=== PATIENT | male | born 2005 | race Caucasian/White ===

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

== ENCOUNTER → 2025-01-09 09:18 | Outpatient (BNVA) | payer OTHER, SELFPAY | PROVIDERS: PCP Pediatrics; Visit Provider Physician Assistant | DX: S86.211A Strain of muscle(s) and tendon(s) of anterior muscle group at lower leg level, right leg, initial encounter (principal); X50.3XXA Overexertion from repetitive movements, initial encounter | CPT/HCPCS: 99203 ==

== ENCOUNTER → 2025-01-13 09:02 | Outpatient (BNVA) | payer OTHER, SELFPAY | PROVIDERS: PCP Pediatrics; Visit Provider Physician Assistant Medical | DX: S86.211D Strain of muscle(s) and tendon(s) of anterior muscle group at lower leg level, right leg, subsequent encounter (principal); S76.311D Strain of muscle, fascia and tendon of the posterior muscle group at thigh level, right thigh, subsequent encounter; X50.3XXD Overexertion from repetitive movements, subsequent encounter | CPT/HCPCS: 99213 ==

== ENCOUNTER → 2025-01-17 15:31 | Outpatient (BNVA) | payer OTHER, SELFPAY | PROVIDERS: PCP Pediatrics; Visit Provider Physician Assistant Medical | DX: S86.211D Strain of muscle(s) and tendon(s) of anterior muscle group at lower leg level, right leg, subsequent encounter (principal); X50.3XXD Overexertion from repetitive movements, subsequent encounter; Z02.79 Encounter for issue of other medical certificate | CPT/HCPCS: 99213 ==

== ENCOUNTER 2025-07-08 19:59 | Emergency (ER) | payer OTHER, SELFPAY ==
[2025-07-08 20:39] VITALS: BP 147/65; PULSE 76; RESP 16; TEMP 36.8; O2SAT 97; BMI 41.8
--- NOTE | 2025-07-08 20:47 | ED_ITS ---
HPI - Male Genitourinary General Chief complaint: Urogenital-Male Stated complaint: STI Time Seen by Provider: 07/09/25 03:03 Source: patient Mode of arrival: ambulatory Limitations: no limitations History of Present Illness ED Provider: Bernardo HUBBARD HPI Narrative: The patient is a 20-year-old male presenting to the ED reporting for the past 2- 3 days he has noticed a lesion on the glans of his penis which he originally thought was a ?pimple?, patient reports the area began increasing in size and popped today while at work. Patient reports the area is a now severely painful with a burning sensation. Patient denies any new sexual partners but does report unprotected sex with a long-term female partner. Patient denies associated testicular swelling or urethral discharge. The patient denies associated fever/chills, nausea, vomiting, or other systemic complaint. The patient is requesting STI testing. Related Data Previous Rx's ?Medication ?Instructions ?Recorded acyclovir 400 mg tablet 400 mg PO TID #30 tabs 07/09 Allergies Allergy/AdvReac Type Severity Reaction Status Date / Time No Known Allergies Allergy Verified 07/08/25 20:43 Review of Systems 2 Review of Systems: Yes all other systems are reviewed and are negative PMFSH Social History Social History Advance Directives: No Physical Exam 2 Vital Signs: Vital Signs: Last Vital Signs Temp 97.9 F 07/09/25 03:40 Pulse 86 07/09/25 03:40 Resp 15 07/09/25 03:40 BP 142/76 H 07/09/25 03:40 Pulse Ox 95 07/09/25 03:40 O2 Del Method Room Air 07/09/25 03:40 BMI result Body Mass Index 41.8 CONSTITUTIONAL: The patient appears non-toxic, well nourished and in no acute distress. Vital signs as documented. HEAD: Atraumatic, normocephalic. EYES: EOMs grossly intact, pupils equal, conjunctiva clear, no exudate. ENT: Nares patent, no discharge. Airway patent, no audible stridor, visible mucosa is pink and moist without noted lesions. NECK: trachea is midline, no obvious masses or gross abnormalities. CHEST: Symmetric movement, normal appearance. LUNGS: Non-labored work of breathing. CARDIAC: No evidence of hypoperfusion. ABDOMEN: Nondistended, no obvious injury. : There is a single ulcerative, painful lesion noted to the glans of the penis with surrounding inflammation, and serosanguineous drainage, more consistent with herpes simplex lesion, less consistent with syphilis. There is no testicular swelling, scrotal edema, scrotal erythema, or urethral drainage. EXTREMITIES: Moves all extremities spontaneously without reported pain. No obvious injury or deformity noted. NEURO: Alert and oriented x3, CN II-XII appear grossly intact. Cerebellar Functioning grossly intact. Speech clear and appropriate. SKIN: Warm, dry, color appropriate. No rashes or lesions noted. Course Course Course Narrative: RME: 20 yold male presents to the ED for lesion on pimple that increased in size and than burst and is now foul smelling and is painful. patinet admits to unprotected sexy. labs UA, CTNG Ordered. Medications Administered Discontinued Medications Generic Name Dose Route Start Last Admin Trade Name Freq PRN Reason Stop Dose Admin Acyclovir 400 mg 07/09/25 03:12 07/09/25 03:34 Acyclovir 200 Mg Capsule PO 07/09/25 03:13 400 mg ONCE ONE Administration Medical Decision Making Medical Decision Making [facility] Narrative: 3:25 AM 07/09/2025 (Heavenly HUBBARD): The patient is a 20-year-old male presenting to the ED reporting for the past 2-3 days he has noticed a lesion on the glans of his penis which he originally thought was a ?pimple?, patient reports the area began increasing in size and popped today while at work. Patient reports the area is a now severely painful with a burning sensation. The patient's exam is consistent with herpes simplex infection, no other acute findings. Viral culture obtained and patient will be treated with acyclovir. Patient's STI testing is pending, we will discharge with continued acyclovir and instructions to follow up regarding testing results. Differential Diagnosis Differential Diagnoses: The differential diagnosis associated with the presentation includes Herpes simplex, syphilis chancre, carbuncle Admission/Observation Consideration of admission/observation: Escalation of care including admission/observation considered Lab Data [facility] Lab Attestation statement: I reviewed the patient's lab results. 07/08/25 21:22 07/08/25 21:22 Labs: Lab Results 07/08/25 Range/Units 21:22 WBC 11.8 H (4.8-10.8) X10*3/uL RBC 5.28 (4.60-5.80) X10*6/uL Hgb 15.4 (14.0-18.0) g/dl Hct 44.7 (42.0-52.0) % MCV 84.7 (80.0-98.0) fL MCH 29.2 (27.0-33.0) pg MCHC 34.5 (31.0-36.0) g/dl RDW 12.6 (11.0-16.0) % Plt Count 305 (160-400) X10*3/uL MPV 10.1 (9.4-12.4) fL Immature Gran % (Auto) 0.3 (0.0-0.4) % Neut % (Auto) 68.6 (45-73) % Lymph % (Auto) 22.5 (20-40) % [place] % (Auto) 7.5 (2-11) % Eos % (Auto) 0.8 (0-4) % Baso % (Auto) 0.3 (0-2) % Lymph # (Auto) 2.7 (1.2-4.9) X10*3/uL [place] # (Auto) 0.9 (0.1-1.2) X10*3/uL Eos # (Auto) 0.1 (0.0-0.4) X10*3/uL Baso # (Auto) 0.0 (0.0-0.2) X10*3/uL Abs Immat Gran (auto) 0.03 (0.00-0.03) X10*3/uL Absolute Neuts (auto) 8.1 (2.0-8.3) x10*3/uL Absolute Nucleated RBC 0.000 (0.0-0.012) X10*3/uL Nucleated RBC % (auto) 0.0 (0.0-0.2) /100WBC Sodium 144 (135-145) mmol/L Potassium 3.6 (3.3-5.1) mmol/L Chloride 110 H (96-108) mmol/L Carbon Dioxide 25 (22-29) mmol/L Anion Gap 13 (12-20) BUN 16 (9-16) mg/dL Creatinine 1.14 (0.5-1.4) mg/dL Estim Creat Clear Calc 145.6 Estimated GFR > 60 Random Glucose 97 (60-115) mg/dL Calcium 9.8 (8.4-10.2) mg/dL Total Bilirubin 0.4 (0.0-1.0) mg/dL AST 24 (5-37) U/L ALT 45 H (0-40) U/L Alkaline Phosphatase 99 (39-117) U/L Total Protein 7.7 (6.5-8.0) g/dL Albumin 5.0 (3.5-5.0) g/dL Urine Color Dark Yellow Urine Appearance Clear Urine pH 5.5 (5.0-9.0) Ur Specific [place] >= 1.030 H (1.005-1.025) Urine Protein Trace (Neg-Trace) mg/dL Urine Glucose (UA) Negative (Negative) mg/dL Urine Ketones Negative (Negative) mg/dL Urine Blood Negative (Negative) Urine Nitrite Negative (Negative) Ur Leukocyte Esterase Negative (Negative) Ur N gonorrhoeae DNA (PCR) NOT DETECTED (Not Detect.) T.pallidum Ab (EIA) Nonreactive (Nonreactive) Ur Chlamydia DNA (PCR) NOT DETECTED (Not Detect.) Tests considered The following testing was considered but not selected: Testicular ultrasound Prescription Management I considered prescription management with: Antiviral Discharge Plan Discharge Clinical Impression: Genital herpes simplex Patient Disposition: Home, Self-Care Instructions: Genital Herpes Infection (ED), Sexually Transmitted Diseases (ED) Additional Instructions: Thank you for choosing [facility] Emergency Department for your care today. At this time there is no indication for admission to the hospital or continued ED observation, and it is safe to discharge you home. Your symptoms and exam today unfortunately are most consistent with, and most concerning for a possible herpes virus infection. Please abstain from any sexual intercourse while the lesion is present, and while awaiting the results of your gonorrhea, chlamydia, syphilis, and herpes testing. You may take alternating (staggered) doses of ibuprofen 600mg and Tylenol 1000mg every 4 hours as needed for any additional pain. It is very important that you take acyclovir 3 times a day for the next 10 days to reduce the severity and duration of your active outbreak. Please follow up with your primary care physician for re-evaluation, additional management of your symptoms, and continued preventative care. If you do not have a primary care physician, please call the [facility] at [phone] to establish a new primary care physician. While waiting to establish your new primary care physician, you can call our Walk-in [facility] at [phone] for non-emergency needs. Please return to the emergency department if you develop a severe or sudden change in your symptoms, a fever over 100.4 that does not improve with Tylenol or Ibuprofen, recurrent vomiting, or any other new or worsening symptoms or concerns. Prescriptions: New acyclovir 400 mg tablet 400 mg PO TID Qty: 30 0RF Referrals: Physician,None [Primary Care Provider, Medical] Clinical Impression: Genital herpes simplex Stand Alone Forms: Work/School Release Interventions: ED Discharge Assessment Last Done: 07/09/25 03:40 Discharge Date/Time: 07/09/25 03:40 Print Language: Gibraltarian
[2025-07-08 21:28] LABS: MANUAL DIFF FLAG NO
[2025-07-08 21:34] LABS: Appearance Urine Clear; Glucose Urine UA Negative (Negative); PH 5.5 (5.0-9.0); Specific Gravity - Urine >= 1.030 (1.005-1.025)
[2025-07-08 21:36] LABS: Hematocrit 44.7 % (42.0-52.0); Hemoglobin 15.4 g/dl (14.0-18.0); Imm Gran Abs Auto 0.03 X10*3/uL (0.00-0.03); Imm Gran Pct Auto 0.3 % (0.0-0.4); Lymphocytes Absolute Auto 2.7 X10*3/uL (1.2-4.9); Mean Corpuscular HGB Conc 34.5 g/dl (31.0-36.0); Mean Corpuscular Hemoglobin 29.2 pg (27.0-33.0); Mean Corpuscular Volume 84.7 fL (80.0-98.0); NRBC Abs Auto 0.000 X10*3/uL (0.0-0.012); NRBC Pct Auto 0.0 /100WBC (0.0-0.2); Platelet Count 305 X10*3/uL (160-400); Red Blood Count 5.28 X10*6/uL (4.60-5.80); White Blood Count 11.8 X10*3/uL (4.8-10.8)
[2025-07-08 21:47] LABS: Alanine Aminotransferase 45 U/L (0-40); Albumin Level 5.0 g/dL (3.5-5.0); Alkaline Phosphatase 99 U/L (39-117); Anion Gap 13 (12-20); Aspartate Amino Transferase 24 U/L (5-37); Blood Urea Nitrogen 16 mg/dL (9-16); Calcium 9.8 mg/dL (8.4-10.2); Carbon Dioxide 25 mmol/L (22-29); Chloride 110 mmol/L (96-108); Creatinine Clr Calc Pharmacy 145.6; Estimated Glomerular Filt Rate > 60; Potassium 3.6 mmol/L (3.3-5.1); Sodium 144 mmol/L (135-145); Total Protein 7.7 g/dL (6.5-8.0)
--- OUTSIDE RECORDS SUMMARY | 2025-07-09 00:40 | XMS_ITS | Encounter Summary ---
Author Organization [facility] Address [address] [place] [address] Phone Care Team Providers Care Calibration Technician Name Role Phone Provider, Malik JIMENEZ Primary Care Provider [phone] Encounter Details Date Type Department Care Team (Late st Contact Info) Description 03/30/2016 Documentation [facility] [place] [address] [place] [address] Family Medicine, Physician [address] [place], [place] [address] Social History Tobacco Use Types Packs/Day Years Used Date Smoking Tobacco: Never Assessed Sex and Gender Information Value Date Recorded Sex Assigned at Male 05/14/2020 12:34 PM EDT Legal Sex Male 5:01 PM EDT Gender Identity Male 05/14/2020 12:34 PM EDT Sexual Orientation Straight 05/14/2020 12 :34 PM EDT documented as of this encounter Plan of Treatment Not on file documented as of this encounter Visit Diagnoses Not on filedocumented in this encounter Care Teams Calibration Technician Relationship Specialty Start Date End Date Provider, MD [address] [place] [address] PCP - General Pediatrics 05/03/24 11/19/24 documented as of this encounter
--- OUTSIDE RECORDS SUMMARY | 2025-07-09 00:40 | XMS_ITS | Encounter Summary ---
Author Organization [facility] Address [address] [place] [address] Phone Care Team Providers Care General Internal Medicine Doctor Name Role Phone Provider, Malik JIMENEZ Primary Care Provider [phone] Encounter Details Date Type Department Care Team (Late st Contact Info) Description 06/29/2017 Conversion Encounter [facility] [place] [address] [place] [address] Social History Tobacco Use Types Packs/Day Years Used Date Smoking Tobacco: Never Comments:Never smoker Sex and Gender Information Value Date Recorded Sex Assigned at Male 05/14/2020 12:34 PM EDT Legal Sex Male 5:01 PM EDT Gender Identity Male 05/14/2020 12:34 PM EDT Sexual Orientation Straight 05/14/2020 12 :34 PM EDT documented as of this encounter Plan of Treatment Not on file documented as of this encounter Visit Diagnoses Not on filedocumented in this encounter Care Teams General Internal Medicine Doctor Relationship Specialty Start Date End Date Provider, MD [address] [place] [phone] PCP - General Pediatrics 05/03/24 11/19/24 documented as of this encounter
--- OUTSIDE RECORDS SUMMARY | 2025-07-09 00:40 | XMS_ITS | Encounter Summary ---
Author Organization [facility] Address [address] [place] [address] Phone Care Team Providers Care Inspector Plug Seam Name Role Phone Provider, Malik JIMENEZ Primary Care Provider [phone] Encounter Details Date Type Department Care Team (Late st Contact Info) Description 02/07/[address] [facility] [place] [address] [place] [address] Family Medicine, Physician [address] [place], [place] [address] Social History Tobacco Use Types Packs/Day Years [...] on filedocumented in this encounter Care Teams Inspector Plug Seam Relationship Specialty Start Date End Date Provider, MD [address] [place] [phone] PCP - General Pediatrics 05/03/24 11/19/24 documented as of this encounter
--- OUTSIDE RECORDS SUMMARY | 2025-07-09 00:40 | XMS_ITS | Encounter Summary ---
Author Organization [facility] Address [address] [place] [address] Phone Care Team Providers Care Dispenser Operator Name Role Phone Provider, Malik JIMENEZ Primary Care Provider [phone] Encounter Details Date Type Department Care Team (Late st Contact Info) Description 09/07/2010 Documentation [facility] [place] [address] [place] [address] Family Medicine, Physician [address] [place], [place] [address] Social History Tobacco Use Types Packs/Day Years [...] on filedocumented in this encounter Care Teams Dispenser Operator Relationship Specialty Start Date End Date Provider, MD [address] [place] [address] PCP - General Pediatrics 05/03/24 11/19/24 documented as of this encounter
--- OUTSIDE RECORDS SUMMARY | 2025-07-09 00:40 | XMS_ITS | Encounter Summary ---
Author Organization [facility] Address [address] [place] [address] Phone Care Team Providers Care Customer Service Specialist Name Role Phone Provider, Malik JIMENEZ Primary Care Provider [phone] Encounter Details Date Type Department Care Team (Late st Contact Info) Description 08/05/2013 Documentation [facility] [place] [address] [place] [address] Family Medicine, Physician [address] [place], [place] [address] Social History Tobacco Use Types Packs/Day Years [...] on filedocumented in this encounter Care Teams Customer Service Specialist Relationship Specialty Start Date End Date Provider, MD [address] [place] [address] PCP - General Pediatrics 05/03/24 11/19/24 documented as of this encounter
--- OUTSIDE RECORDS SUMMARY | 2025-07-09 00:40 | XMS_ITS | Encounter Summary ---
Author Organization [facility] Address [address] [place] [address] Phone Care Team Providers Care China Painter Name Role Phone Provider, Malik JIMENEZ Primary Care Provider [phone] Encounter Details Date Type Department Care Team (Late st Contact Info) Description 05/28/2012 Documentation [facility] [place] [address] [place] [address] Family Medicine, Physician [address] [place], [place] [address] Social History Tobacco Use Types Packs/Day Years [...] on filedocumented in this encounter Care Teams China Painter Relationship Specialty Start Date End Date Provider, MD [address] [place] [address] PCP - General Pediatrics 05/03/24 11/19/24 documented as of this encounter
--- OUTSIDE RECORDS SUMMARY | 2025-07-09 00:40 | XMS_ITS | Encounter Summary ---
Author Organization [facility] Address [address] [place] [address] Phone Care Team Providers Care Beater Engineer Name Role Phone Provider, Malik JIMENEZ Primary Care Provider [phone] Encounter Details Date Type Department Care Team (Late st Contact Info) Description 01/28/2010 Documentation [facility] [place] [address] [place] [address] Family Medicine, Physician [address] [place], [place] [address] Social History Tobacco Use Types Packs/Day Years [...] on filedocumented in this encounter Care Teams Beater Engineer Relationship Specialty Start Date End Date Provider, MD [address] [place] [address] PCP - General Pediatrics 05/03/24 11/19/24 documented as of this encounter
--- OUTSIDE RECORDS SUMMARY | 2025-07-09 00:40 | XMS_ITS | Encounter Summary ---
Author Organization [facility] Address [address] [place] [address] Phone Care Team Providers Care Recycling Assistant Name Role Phone Provider, Malik JIMENEZ Primary Care Provider [phone] Encounter Details Date Type Department Care Team (Late st Contact Info) Description 02/07/2017 Documentation [facility] [place] [address] [place] [address] Family Medicine, Physician [address] [place], [place] [address] Social History Tobacco Use Types Packs/Day Years [...] on filedocumented in this encounter Care Teams Recycling Assistant Relationship Specialty Start Date End Date Provider, MD [address]ik [address] [place] [phone] PCP - General Pediatrics 05/03/24 11/19/24 documented as of this encounter
--- OUTSIDE RECORDS SUMMARY | 2025-07-09 00:40 | XMS_ITS | Encounter Summary ---
Author Organization [facility] Address [address] [place] [address] Phone Care Team Providers Care Forgeman Helper Name Role Phone Provider, Malik JIMENEZ Primary Care Provider [phone] Encounter Details Date Type Department Care Team (Late st Contact Info) Description 08/05/2010 Documentation [facility] [place] Family [place] [address] [place] [address] Family Medicine, Physician [address] [place], [place] [address] Social History Tobacco Use Types Packs/Day Years [...] on filedocumented in this encounter Care Teams Forgeman Helper Relationship Specialty Start Date End Date Provider, MD [address] [place] [address] PCP - General Pediatrics 05/03/24 11/19/24 documented as of this encounter
--- OUTSIDE RECORDS SUMMARY | 2025-07-09 00:40 | XMS_ITS | Encounter Summary ---
Author Organization [facility] Address [address] [place] [address] Phone Care Team Providers Care Hotel Service Manager Name Role Phone Provider, Malik JIMENEZ Primary Care Provider [phone] Encounter Details Date Type Department Care Team (Late st Contact Info) Description 08/05/2013 [place]ation [facility] [place] [address] [place] [address] Family Medicine, Physician [address] [place], [place] [address] Social History Tobacco Use Types Packs/Day Years [...] on filedocumented in this encounter Care Teams Hotel Service Manager Relationship Specialty Start Date End Date Provider, MD [address] [place] [address] PCP - General Pediatrics 05/03/24 11/19/24 documented as of this encounter
--- OUTSIDE RECORDS SUMMARY | 2025-07-09 00:40 | XMS_ITS | Encounter Summary ---
Author Organization [facility] Address [address] [place] [address] Phone Care Team Providers Care Rehabilitation Therapy Technician Name Role Phone Provider, Malik JIMENEZ Primary Care Provider [phone] Encounter Details Date Type Department Care Team (Late st Contact Info) Description 01/29/2010 Documentation [facility] [place] [address] [place] [address] Family Medicine, Physician [address] [place], [place] [address] Social History Tobacco Use Types Packs/Day Years [...] on filedocumented in this encounter Care Teams Rehabilitation Therapy Technician Relationship Specialty Start Date End Date Provider, MD [address] [place] [address] PCP - General Pediatrics 05/03/24 11/19/24 documented as of this encounter
--- OUTSIDE RECORDS SUMMARY | 2025-07-09 00:40 | XMS_ITS | Encounter Summary ---
Author Organization [facility] Address [address] [place] [address] Phone Care Team Providers Care Slasher Hand Name Role Phone Provider, Malik JIMENEZ Primary Care Provider [phone] Encounter Details Date Type Department Care Team (Late st Contact Info) Description 02/07/2017 Documentation [facility] [place] [address] [place] [address] Family Medicine, Physician [address] [place], [place] [address] Social History Tobacco Use Types Packs/Day Years [...] on filedocumented in this encounter Care Teams Slasher Hand Relationship Specialty Start Date End Date Provider, MD [address] [place] [phone] PCP - General Pediatrics 05/03/24 11/19/24 documented as of this encounter
--- OUTSIDE RECORDS SUMMARY | 2025-07-09 00:40 | XMS_ITS | Clinical Summary ---
Author Organization [facility] Address [address] [place] [phone] Phone Care Team Providers Care Electrical Maintenance Supervisor Name Role Phone Unavailable Primary Care Provider Unavailabl e Allergies No known active allergies Medications Glycerin-Hypromell ose-PEG 400 (Artificial Tears) 0.2-0.2-1 % solutionIndication s:Dry eyes 2 gtts ou as needed. 30 mL 3 2 Active amphetamine-dextro amphetamine XR (Adderall XR) 25 MG 24 hr capsuleIndications :Attention deficit hyperactivity disorder, predominantly inattentive type Take 1 capsule (25 mg total) by mouth every morning. 30 capsule 3 Active amphetamine-dextro amphetamine XR (Adderall XR) 25 MG 24 hr capsuleIndications :Attention deficit hyperactivity disorder, predominantly inattentive type Take 1 capsule (25 mg total) by mouth every morning. 30 capsule 3 Active Active Problems Problem Noted Date Diagnosed Date Elevated cholesterol 04/05/2021 Assessment & Plan (07/06/2022 3:57 PM EDT): Will repeat with fasting specimen Hypertension 11/10/2017 Overview (12/15/2022): He had high BP when a toddler and overweight living with Mom. I had him seen by cardio (Dion) and renal and endo and they all cleared him! Then lived with , ate better, lost weight and HTN resolved!! Now he is overweight and also HTN again Obesity 08/17/2012 Assessment & Plan (07/06/2022 3:58 PM EDT): Has lost almost 20 lb in the last year! Attention deficit hyperactiv ity disorder, predominantly inattentive type 06/01/2010 Overview (02/19/2019): 03/01- Doing welll on Adderall XR 25 mg Assessment & Plan (07/06/2022 4:00 PM EDT): Continues to do well on Adderall with no signif side effects - suggested f/u in August with new Leo forms. 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 Update given. JL 03/05/2020 Assessment & Plan (06/02/2021 10:48 AM EDT): 06/02/21 Paulino Louie calling [phone] for medical update on child - release is scanned; looking for date of last PE and any concerns listed- information given Assessment & Plan (05/27/2021 3:56 PM EDT): 05/27/21 Paulino [place] [phone] calling for medical update-no medical release on file; Paulino will email release to office Heart murmur 01/23/2018 02/19/2019 Behavior problem in child 03/30/2010 Overview (02/19/2019): Has in home therapy, doing well. Only on Adderall at this point. Immunizations Immunization Administration Dates Next Due COVID-19 Pfizer, bivalent, 12+ years 12/15/2022 COVID-19 Pfizer, seasonal, 12+ years 02/05/2024 DTaP / Hep B / IPV 2005,2005, 005 DTaP 5 07/06/2009,11/02/2006 HPV Vaccine 9 Valent 12/07/2017,12/02/2016 Hep A, ped/adol 06/29/2007,11/02/2006 Hep B, ped/adol 2005 Hib (HbOC) 2005,2005,2005 Hib (PRP-T) 07/24/2006 IPV 07/06/2009 Influenza Split 09/15/2011 Influenza, injectable, quadr ivalent, preservative free 02/05/2024,12/15/2022,08/24/2021,08/20,08/06/2019,10/02/2018,12/07/2017 ,08/03/2016 Influenza, injectable, trivalent 11/02/2006,10/13 Influenza, intranasal, quadrivalent 09/17/2015,1 ,08/02/2013 Influenza, intranasal, trivalent 08/17/2012,07/15 MMR 07/06/2009,04/24/2006 Meningococcal Conj (Menactra) MCV4P 06/07/2021,0 12/02/2016 Pneumococcal Conjugate 07/24/2006,2004,2005,06/22 Tdap 12/02/2016 Varicella 07/06/2009,04/24/2006 Family History Medical History Relation Name Comments No Known Problems Brother Patrick Sanchez Diabetes Father octavio Hyperlipidemia Father octavio No Known Problems Half-Sister glenis ADD / ADHD Mother Herb Anxiety disorder Mother Herb Asthma Mother Herb Bipolar disorder Mother Herb Depression Mother Herb Mental illness Mother Herb Obesity Mother Herb Relation Name Status Comments Brother Patrick Enamorados Alive Father octavio Half-Sister glenis Alive Maternal Grandfather Materna l uncle: ADD/ADHD Mother Herb Alive Other No family histo ry of Migraines, No family history of *Sudden /IN under 55, No family history of Cancer, No family history of *CVA/Stroke, No family history of Hyperlipidemia, No family history of Diabetes mellitus, No family history of Seizure disorder, No family history of *Thrombophilia, Family history of Obesity, No family history of *Heart Disease, No family history of Deafness, No family history of Strabismus Social History Tobacco Use Types Packs/Day Years Used Date Smoking Tobacco: Never Smokeless Tobacco: Never Comments:Never smoker Hunger/Food Answer Date Recorded In the last 12 months, did y ou or your family ever eat less than you felt you should because there wasn't enough money for food? No 07/06/2022 Stable Housing Answer Date Recorded Are you worried that in the next 2 months you may not have stable housing? No 07/06/2022 Transportation Concerns Answer Date Rec orded In the last 12 months, have you or your family ever had to go without healthcare because you didn't have a way to get there? No 07/06/2022 Hazards in Home Answer Date Recorded Think about the place you li ve. Do you have problems with any of the following? Pests (mice or roaches), mold, no/not working smoke detectors, water leaks, no window guards. No 2021 Financing Utilities Answer Date Recorde d In the last 12 months, has t he electric, gas, oil, or water company threatened to shut off your services in your home? No 07/06/2022 Safety at Home Answer Date Recorded Are you or your family worried about feeling saf e in your home? No 07/06/2022 Outside Support Answer Date Recorded Do you feel that you need mo re support from other people or programs to help you care for yourself or your family? No 07/06/2022 Understanding Health Concerns Answer Da te Recorded Do you need help understandi ng your or your child's healthcare needs (diagnosis, medications, plan, etc.)? No 07/06/2022 Financing Health Concerns Answer Date R ecorded In the last 12 months, was t here a time when your child needed to see a doctor or get medications or supplies but could not because of cost? No 07/06/2022 Missing School or Work Answer Date Vivek rded Did you or your child miss s chool or work because of a health problem that could have been avoided? No 07/06/2022 Sex and Gender Information Value Date Recorded Sex Assigned at Male 05/14/2020 12:34 PM EDT Legal Sex Male 5:01 PM EDT Gender Identity Male 05/14/2020 12:34 PM EDT Sexual Orientation Straight 05/14/2020 12 :34 PM EDT Last Filed Vital Signs Vital Sign Reading Time Taken Comments Blood Pressure 120/74 06/07/2023 2:27 PM EDT Pulse 73 06/07/2023 2:27 PM EDT Temperature 36.7 C (98 F) 06/07/2023 2:27 PM EDT Respiratory Rate - - Oxygen Saturation - - Inhaled Oxygen Concentration - - Weight 146 kg (322 lb 6 oz) 02/05/2024 3:51 PM E DT Height 179.1 cm (5' 10.5 ) 07/06/2022 3:33 PM ED T Body Mass Index - - Plan of Treatment Health Maintenance Due Date Last Done Comments Men B Vaccine (1 of 2 - Standard) 2021 COVID-19 Vaccine (5 - 2023-2 5 season) 2024 02/05/2024, 12/15/2022, 04/24/2021, Additional history exists Influenza Vaccines (#1) 2025 02/05/20, 12/15/2022, 08/24/2021, Additional history exists DTaP,Tdap,and Td Vaccines (7 - Td or Tdap) 12/02/2026 12/02/2016, 07/06/2009, 11/02/2006, Additional history exists Hepatitis B Vaccines Completed 2005, 2005, 2005, Additional history exists HIB Vaccines Completed 07/24/2006, 10/13, 2005, Additional history exists Pneumococcal Vaccine Completed 07/24/2006, 2005, 2005, Additional history exists Hepatitis A Vaccines Completed 06/29/2007, 11/02/20 06 IPV Vaccines Completed 07/06/2009, 10/13, 2005, Additional history exists MMR Vaccines Completed 07/06/2009, 04/24/2006 Varicella Vaccines Completed 07/06/2009, 04/24/2006 HPV Vaccines Completed 12/07/2017, 12/02/2016 Meningococcal Vaccine Completed 06/07/2021, [address] [facility] NON PCC [facility] Address: [address] [address] [place] [address]
--- OUTSIDE RECORDS SUMMARY | 2025-07-09 00:40 | XMS_ITS | Encounter Summary ---
Author Organization [facility] Address [address] [place] [phone] Phone Care Team Providers Care Surety Bond Agent Name Role Phone Provider, Malik JIMENEZ Primary Care Provider [phone] Reason for Visit * Reason Onset Date Comments Med Refill 05/19/2022 Encounter Details Date Type Department Care Team (Late st Contact Info) Description 05/19/2022 Refill [facility] [address] [place] [address] Rogelio Pimentel MD [address] [place] [address] Dry eyes; Attention deficit hyperactivity disorder, predominantly inattentive type Social History Tobacco Use Types Packs/Day Years Used Date Smoking Tobacco: Never Smokeless Tobacco: Never Comments:Never smoker Hunger/Food Answer Date Recorded In the last 12 months, did y ou or your family ever eat less than you felt you should because there wasn't enough money for food? No 02/19/2019 Stable Housing Answer Date Recorded Are you worried that in the next 2 months you may not have stable housing? No 02/19/2019 Transportation Concerns Answer Date Rec orded In the last 12 months, have you or your family ever had to go without healthcare because you didn't have a way to get there? No 02/19/2019 Hazards in Home Answer Date Recorded Think about the place you li ve. Do you have problems with any of the following? Pests (mice or roaches), mold, no/not working smoke detectors, water leaks, no window guards. No 2018 Financing Utilities Answer Date Recorde d In the last 12 months, has t he electric, gas, oil, or water company threatened to shut off your services in your home? No 02/19/2019 Safety at Home Answer Date Recorded Are you or your family worried about feeling saf e in your home? No 02/19/2019 Outside Support Answer Date Recorded Do you feel that you need mo re support from other people or programs to help you care for yourself or your family? No 02/19/2019 Understanding Health Concerns Answer Da te Recorded Do you need help understandi ng your or your child's healthcare needs (diagnosis, medications, plan, etc.)? No 02/19/2019 Financing Health Concerns Answer Date R ecorded In the last 12 months, was t here a time when your child needed to see a doctor or get medications or supplies but could not because of cost? No 02/19/2019 Missing School or Work Answer Date Vivek rded Did you or your child miss s chool or work because of a health problem that could have been avoided? No 02/19/2019 Sex and Gender Information Value Date Recorded Sex Assigned at Male 05/14/2020 12:34 PM EDT Legal Sex Male 5:01 PM EDT Gender Identity Male 05/14/2020 12:34 PM EDT Sexual Orientation Straight 05/14/2020 12 :34 PM EDT documented as of this encounter Plan of Treatment Not on file documented as of this encounter Visit Diagnoses Diagnosis Dry eyes Unspecified tear film insufficiency Attention deficit hyperactivity disorder, predominantly inattentive type documented in this encounter Care Teams Surety Bond Agent Relationship Specialty Start Date End Date Provider, MD Malik [address] [place] [phone] PCP - General Pediatrics 05/03/24 11/19/24 documented as of this encounter
[2025-07-09 03:37] VITALS: BP 142/76; PULSE 86; RESP 15; TEMP 36.6; O2SAT 95
[2025-07-09 03:40] VITALS: BP 142/76; PULSE 86; RESP 15; TEMP 36.6; O2SAT 95
[2025-07-09 08:09] LABS: Syphilis Screen Nonreactive (Nonreactive)
[2025-07-09 10:24] LABS: CT PCR Urine NOT DETECTED (Not Detect.); NG PCR Urine NOT DETECTED (Not Detect.)
== END 2025-07-09 03:40 | disposition home or self-care (01) ==
PROVIDERS: Physician Assistant; Emergency Provider Emergency Medicine
DX: A60.01 Herpesviral infection of penis (principal)
CPT/HCPCS: 36415; 80053; 81003; 85025; 86780; 87255; 87491; 87591; 99283

== ENCOUNTER 2025-08-14 09:35 | Emergency (ER) | payer OTHER, SELFPAY ==
--- NOTE | ~2025-08-14 | XR_ITS ---
EXAMINATION: XR CHEST CLINICAL INFORMATION: cough x1 month COMPARISON: None available. TECHNIQUE: 2 views of the chest were obtained. FINDINGS: The cardiac, hilar, and mediastinal contours are normal. The lungs are clear bilaterally. There is no pneumothorax or pleural effusion. There is no focal osseous or soft tissue abnormality. XR/XR chest 2V IMPRESSION: Normal chest. Electronically signed by: Bernardo Solomon MD 08/14/2025 10:20 AM EDT
[2025-08-14 09:37] VITALS: BP 166/102; PULSE 74; RESP 20; TEMP 37; O2SAT 97; BMI 41.5
[2025-08-14 10:00] VITALS: BP 150/80; PULSE 72; RESP 18; TEMP 37; O2SAT 96
--- NOTE | 2025-08-14 10:37 | ED_ITS ---
HPI - URI/Sore Throat General Chief Complaint: Upper Respiratory Symptoms Stated Complaint: sick for a month Time Seen by Provider: 08/14/25 10:11 Source: patient Mode of arrival: ambulatory Limitations: no limitations History of Present Illness ED Provider: STEPH NG PA-C HPI Narrative: 20 yo M presents to the ED today for evaluation of lingering cough 1 month. Reports cough productive of white/green sputum persistent over the last month. Reports hoarse voice and congestion 1 mo ago. Had no sick contacts at this time. No fevers/chills. Has persistent cough, worse at night. Tried Mucinex without much improvement. He is not a current or former tobacco smoker. He has no h/o asthma. Endorses chest soreness from coughing, but no acute CP or SOB. Has mild headache, sinus/ear congestion. Denies n/v or changes to bowel habits. Related Data Previous Rx's ?Medication ?Instructions ?Recorded acyclovir 400 mg tablet 400 mg PO TID #30 tabs 07/09 albuterol sulfate 90 mcg/actuation 2 inh inhalation Q2 0M PRN 08/14/25 breath activated powder inhaler shortness of breath or wheezing #1 ea azithromycin 250 mg tablet See Rx Instructions PO .COM PLEX #6 08/14/25 tabs benzonatate 100 mg capsule 100 mg PO BID PRN cough #20 caps 08/14/25 prednisone 20 mg tablet 40 mg (2 x 20 mg) PO DAILY 5 days 08/14/25 #10 tabs Allergies Allergy/AdvReac Type Severity Reaction Status Date / Time No Known Allergies Allergy Verified 08/14/25 09:40 Review of Systems 2 Review of Systems: Yes all other systems are reviewed and are negative PMFSH Past Medical History Attestation statement: The following information was validated with the patient. Source: old records reviewed and nursing notes reviewed Physical Exam 2 Vital Signs: Vital Signs: Last Vital Signs Temp 98.6 F 08/14/25 11:55 Pulse 67 08/14/25 11:55 Resp 18 08/14/25 11:55 BP 150/80 H 08/14/25 11:55 Pulse Ox 96 08/14/25 11:55 O2 Del Method Room Air 08/14/25 11:55 BMI result Body Mass Index 41.5 Hypertensive, afebrile, not hypoxic General: Well appearing, in no acute distress. Skin: Warm, dry, intact. No rashes or lesions. Head: Normocephalic, atraumatic. EENT: Hearing is intact b/l. Conjunctiva clear. Sclera is anicteric. PERRLA. EOM intact. Moist mucous membranes.? Neck: Supple without LAD Cardiac: Chest wall symmetric. RRR Lungs: No respiratory distress, no tripoding, bronchospastic cough noted. lungs with expiratory wheezes throughout. Ext: Upper and lower extremities atraumatic, without tenderness, deformity, swelling or erythema Neuro: AOx3. Normal speech. Ambulating with steady gait. Course Course Course Narrative: Screening labs unremarkable. Negative COVID, flu, strep throat. Chest x-ray does not demonstrate pneumonia. Patient treated with updraft in the ED. Lungs clear. Given length of symptoms, will treat for bronchitis. Azithromycin, prednisone, Tessalon Perles and albuterol sent to pharmacy. Patient has remained stable throughout ED visit today. Discussed worrisome signs and symptoms and when to return to the ED. All questions answered at this time. Patient is agreeable with disposition and stable for discharge. Medications Administered Discontinued Medications Generic Name Dose Route Start Last Admin Trade Name Freq PRN Reason Stop Dose Admin Albuterol Sulfate 4 puff 08/14/25 11:02 08/14/25 11:07 Albuterol Sulfate 90 Mcg 8 Gm Inhaler INHALE 08/14/25 11:03 4 puff ONCE ONE Administration Methylprednisolone Sodium Succinate 60 mg 08/14/25 10:36 08/14/25 10:53 Methylprednisolone Sod Succ 125 Mg/2 Ml Vial IM 08/14/25 10:37 60 mg ONCE ONE Administration Medical Decision Making Medical Decision Making [facility] Narrative: 20 yo M presents to the ED today for evaluation of lingering cough 1 month. Patient is hypertensive. Not hypoxic, afebrile. He is generally well-appearing and in no acute distress. No respiratory distress, no tripoding, bronchospastic cough noted. lungs with expiratory wheezes throughout. Differential diagnosis includes viral syndrome, pneumonia, bronchitis, asthma, strep throat Screening labs, viral swabs, strep swabs and chest x-ray obtained from triage. Plan to review and re-evaluate. ED bronch protocol ordered. Differential Diagnosis Differential Diagnoses: The differential diagnosis associated with the presentation includes As above Admission/Observation Not indicated Lab Data [facility] Lab Attestation statement: I reviewed the patient's lab results. As above 08/14/25 10:42 08/14/25 10:42 Labs: Lab Results 08/14/25 Range/Units 10:42 WBC 6.2 (4.8-10.8) X10*3/uL RBC 5.30 (4.60-5.80) X10*6/uL Hgb 15.6 (14.0-18.0) g/dl Hct 45.2 (42.0-52.0) % MCV 85.3 (80.0-98.0) fL MCH 29.4 (27.0-33.0) pg MCHC 34.5 (31.0-36.0) g/dl RDW 12.6 (11.0-16.0) % Plt Count 254 (160-400) X10*3/uL MPV 10.2 (9.4-12.4) fL Immature Gran % (Auto) 0.3 (0.0-0.4) % Neut % (Auto) 58.2 (45-73) % Lymph % (Auto) 29.1 (20-40) % [place] % (Auto) 9.1 (2-11) % Eos % (Auto) 2.8 (0-4) % Baso % (Auto) 0.5 (0-2) % Lymph # (Auto) 1.8 (1.2-4.9) X10*3/uL [place] # (Auto) 0.6 (0.1-1.2) X10*3/uL Eos # (Auto) 0.2 (0.0-0.4) X10*3/uL Baso # (Auto) 0.0 (0.0-0.2) X10*3/uL Abs Immat Gran (auto) 0.02 (0.00-0.03) X10*3/uL Absolute Neuts (auto) 3.6 (2.0-8.3) x10*3/uL Absolute Nucleated RBC 0.000 (0.0-0.012) X10*3/uL Nucleated RBC % (auto) 0.0 (0.0-0.2) /100WBC Sodium 142 (135-145) mmol/L Potassium 4.0 (3.3-5.1) mmol/L Chloride 112 H (96-108) mmol/L Carbon Dioxide 24 (22-29) mmol/L Anion Gap 10 L (12-20) BUN 12 (9-16) mg/dL Creatinine 0.98 (0.5-1.4) mg/dL Estim Creat Clear Calc 158.9 Estimated GFR > 60 Random Glucose 94 (60-115) mg/dL Calcium 9.2 D (8.4-10.2) mg/dL COVID-19 (GINI) Negative (Negative) COVID-19 Clin Com See Note Influenza Type A (KRIS) Negative (Negative) Influenza Type B (KRIS) Negative (Negative) Influenza A & B Note See Note S. pyogenes GrpA KRIS Negative (Negative) Independent Interpretation I performed an independent interpretation of an: Plain X-Ray Interpretation: Chest x-ray without infiltrate or consolidation Radiology Impression Discussion of test interpretation with radiology: I have reviewed the radiologist's reading. Radiologist Impression: Procedure(s): XR chest 2V Accession Number(s): [id number] cc: Generic ED Physician; Physician,None ~ Reason for Exam: cough x1 month EXAMINATION: XR CHEST CLINICAL INFORMATION: cough x1 month COMPARISON: None available. TECHNIQUE: 2 views of the chest were obtained. FINDINGS: The cardiac, hilar, and mediastinal contours are normal. The lungs are clear bilaterally. There is no pneumothorax or pleural effusion. There is no focal osseous or soft tissue abnormality. XR/XR chest 2V IMPRESSION: Normal chest. Electronically signed by: Bernardo Solomon MD 08/14/2025 10:20 AM EDT Prescription Management I considered prescription management with: Antibiotic (Azithromycin) and Other (Prednisone, albuterol, Tessalon) Social Determinants Patient?s care significantly limited by Social Determinants of Health including: Other Social Determinant of Health Critical Care Time Critical Care Time Critical Care Time: No Discharge Plan Discharge Clinical Impression: Bronchitis Patient Disposition: Home, Self-Care Instructions: Acute Bronchitis (ED) Additional Instructions: You were evaluated in the ED today for 1 month of a cough. Your blood work is reassuring. You tested negative for COVID, flu, strep throat. Your chest x-ray does not demonstrate pneumonia. I am treating you for bronchitis. You were given an albuterol treatment and a steroid in the ED today. I am sending you home with prednisone. Take this over the next 5 days. I am also sending you home with azithromycin, an antibiotic. Take this as prescribed over the next 5 days. Take your 1st dose tomorrow as you already received steroids in the ED today. Rupa Gillespie have been sent to your pharmacy for cough. Return with any new or worsening symptoms. In the case of an emergency call 911. Prescriptions: New prednisone 20 mg tablet 40 mg PO DAILY 5 Days Qty: 10 0RF azithromycin 250 mg tablet See Rx Instructions .ROUTE .COMPLEX Qty: 6 0RF Rx Instructions: For 250 mg dose pack: take 500 mg today (day 1), then 250 mg for 4 days (days 2-5) albuterol sulfate 90 mcg/actuation aerosol powdr breath activated 2 inh inhalation Q20M PRN (Reason: shortness of breath or wheezing) Qty: 1 0RF benzonatate 100 mg capsule 100 mg PO BID PRN (Reason: cough) Qty: 20 0RF No Action acyclovir 400 mg tablet 400 mg PO TID Qty: 30 0RF Referrals: Physician,None [Primary Care Provider, Medical] Interventions: ED Discharge Assessment Last Done: 08/14/25 11:55 Discharge Date/Time: 08/14/25 11:56 Print Language: Chadian
[2025-08-14 10:50] LABS: MANUAL DIFF FLAG NO
[2025-08-14 10:53] LABS: Hematocrit 45.2 % (42.0-52.0); Hemoglobin 15.6 g/dl (14.0-18.0); Imm Gran Abs Auto 0.02 X10*3/uL (0.00-0.03); Imm Gran Pct Auto 0.3 % (0.0-0.4); Lymphocytes Absolute Auto 1.8 X10*3/uL (1.2-4.9); Mean Corpuscular HGB Conc 34.5 g/dl (31.0-36.0); Mean Corpuscular Hemoglobin 29.4 pg (27.0-33.0); Mean Corpuscular Volume 85.3 fL (80.0-98.0); NRBC Abs Auto 0.000 X10*3/uL (0.0-0.012); NRBC Pct Auto 0.0 /100WBC (0.0-0.2); Platelet Count 254 X10*3/uL (160-400); Red Blood Count 5.30 X10*6/uL (4.60-5.80); White Blood Count 6.2 X10*3/uL (4.8-10.8)
--- OUTSIDE RECORDS SUMMARY | 2025-08-14 11:02 | XMS_ITS | Encounter Summary ---
Author Organization [facility] Address [address] [place] [phone] Phone Care Team Providers Care Meter And Service Line Inspector Name Role Phone Provider, Malik JIMENEZ Primary Care Provider [phone] Encounter Details Date Type Department Care Team (Late st Contact Info) Description 05/28/2012 Documentation [facility] Family Medicine [address] [place] [address] Family Medicine, Physician [address] [place], [place] [id number] Social History Tobacco Use Types Packs/Day Years [...] on filedocumented in this encounter Care Teams Meter And Service Line Inspector Relationship Specialty Start Date End Date Provider, MD Malik [address] [place] [phone] PCP - General Pediatrics 05/03/24 11/19/24 documented as of this encounter
--- OUTSIDE RECORDS SUMMARY | 2025-08-14 11:02 | XMS_ITS | Encounter Summary ---
Author Organization [facility] Address [address] [place] [address] Phone Care Team Providers Care Vermin Exterminator Name Role Phone Provider, Malik JIMENEZ Primary Care Provider [phone] Encounter Details Date Type Department Care Team (Late st Contact Info) Description 08/05/2013 Documentation [facility] [place] [address] [place] [address] Family Medicine, Physician [address] [place], [place] [phone] Social History Tobacco Use Types Packs/Day Years [...] on filedocumented in this encounter Care Teams Vermin Exterminator Relationship Specialty Start Date End Date Provider, MD Malik [address] [place] [phone] PCP - General Pediatrics 05/03/24 11/19/24 documented as of this encounter
--- OUTSIDE RECORDS SUMMARY | 2025-08-14 11:02 | XMS_ITS | Encounter Summary ---
Author Organization [facility] Address [address] [place] [phone] Phone Care Team Providers Care Bookkeeper Receptionist Name Role Phone Provider, Malik JIMENEZ Primary Care Provider [phone] Encounter Details Date Type Department Care Team (Late st Contact Info) Description 08/05/2013 Documentation [facility] [place] [facility] Family Medicine [address] [place] [address] Family Medicine, Physician [address] [place], [place] [phone] Social History Tobacco Use Types Packs/Day Years [...] on filedocumented in this encounter Care Teams Bookkeeper Receptionist Relationship Specialty Start Date End Date Provider, MD Malik [address] [place] [phone] PCP - General Pediatrics 05/03/24 11/19/24 documented as of this encounter
[2025-08-14 11:03] LABS: Anion Gap 10 (12-20); Blood Urea Nitrogen 12 mg/dL (9-16); Calcium 9.2 mg/dL (8.4-10.2); Carbon Dioxide 24 mmol/L (22-29); Chloride 112 mmol/L (96-108); Creatinine Clr Calc Pharmacy 158.9; Estimated Glomerular Filt Rate > 60; Potassium 4.0 mmol/L (3.3-5.1); Sodium 142 mmol/L (135-145)
--- OUTSIDE RECORDS SUMMARY | 2025-08-14 11:03 | XMS_ITS | Encounter Summary ---
Author Organization [facility] Address [address] [place] [phone] Phone Care Team Providers Care Logistics Analyst Name Role Phone Provider, Malik JIMENEZ Primary Care Provider [phone] Encounter Details Date Type Department Care Team (Late st Contact Info) Description 02/07/2017 Documentation [facility] [place] Family Medicine [address] [place] [address] Family Medicine, Physician [address] [place], [place] [phone] Social History Tobacco Use Types Packs/Day Years [...] on filedocumented in this encounter Care Teams Logistics Analyst Relationship Specialty Start Date End Date Provider, MD Malik [address] [place] [phone] PCP - General Pediatrics 05/03/24 11/19/24 documented as of this encounter
--- OUTSIDE RECORDS SUMMARY | 2025-08-14 11:03 | XMS_ITS | Encounter Summary ---
Author Organization [facility] Address [address] [place] [address] Phone Care Team Providers Care Atm Servicer Name Role Phone Provider, Malik JIMENEZ Primary Care Provider [phone] Encounter Details Date Type Department Care Team (Late st Contact Info) Description 09/07/2010 Documentation [facility] [place] [address] [place] [address] Family Medicine, Physician [address] [place], [place] [address] Social History Tobacco Use Types Packs/Day Years [...] on filedocumented in this encounter Care Teams Atm Servicer Relationship Specialty Start Date End Date Provider, MD Malik [address] [place] [address] PCP - General Pediatrics 05/03/24 11/19/24 documented as of this encounter
--- OUTSIDE RECORDS SUMMARY | 2025-08-14 11:03 | XMS_ITS | Encounter Summary ---
Author Organization [facility] Address [address] [place] [address] Phone Care Team Providers Care Recreational Resort Manager Name Role Phone Provider, Malik JIMENEZ Primary Care Provider [phone] Encounter Details Date Type Department Care Team (Late st Contact Info) Description 06/29/2017 Conversion Encounter [facility] [place] [address] [place] [address] Social History Tobacco Use Types Packs/Day Years [...] on filedocumented in this encounter Care Teams Recreational Resort Manager Relationship Specialty Start Date End Date Provider, MD Malik [address] [place] [phone] PCP - General Pediatrics 05/03/24 11/19/24 documented as of this encounter
--- OUTSIDE RECORDS SUMMARY | 2025-08-14 11:03 | XMS_ITS | Encounter Summary ---
Author Organization [facility] Address [address] [place] [address] Phone Care Team Providers Care Sample Taker Operator Name Role Phone Provider, Malik JIMENEZ Primary Care Provider [phone] Encounter Details Date Type Department Care Team (Late st Contact Info) Description 02/07/2017 Documentation [facility] [place] [address] [place] [address] Family Medicine, Physician [address] [place], [place] [address] Social History Tobacco Use Types Packs/Day Years [...] on filedocumented in this encounter Care Teams Sample Taker Operator Relationship Specialty Start Date End Date Provider, MD Malik [address] [place] [phone] PCP - General Pediatrics 05/03/24 11/19/24 documented as of this encounter
--- OUTSIDE RECORDS SUMMARY | 2025-08-14 11:03 | XMS_ITS | Encounter Summary ---
Author Organization [facility] Address [address] [place] [address] Phone Care Team Providers Care Gmat Tutor Name Role Phone Provider, Malik JIMENEZ Primary Care Provider [phone] Encounter Details Date Type Department Care Team (Late st Contact Info) Description 01/28/2010 Documentation [facility] [place] [address] [place] [address] Family Medicine, Physician [address] [place], [place] [address] Social History Tobacco Use Types Packs/Day Years [...] on filedocumented in this encounter Care Teams Gmat Tutor Relationship Specialty Start Date End Date Provider, MD Malik [address] [place] [address] PCP - General Pediatrics 05/03/24 11/19/24 documented as of this encounter
--- OUTSIDE RECORDS SUMMARY | 2025-08-14 11:03 | XMS_ITS | Encounter Summary ---
Author Organization [facility] Address [address] [place] [address] Phone Care Team Providers Care Log Rafter Name Role Phone Provider, Malik JIMENEZ Primary Care Provider [phone] Encounter Details Date Type Department Care Team (Late st Contact Info) Description 03/30/2016 Documentation [facility] [place] [address] [place] [address] Family Medicine, Physician [address] [place], [place] [address] Social History Tobacco Use Types Packs/Day Years [...] on filedocumented in this encounter Care Teams Log Rafter Relationship Specialty Start Date End Date Provider, MD Malik [address] [place] [address] PCP - General Pediatrics 05/03/24 11/19/24 documented as of this encounter
--- OUTSIDE RECORDS SUMMARY | 2025-08-14 11:03 | XMS_ITS | Encounter Summary ---
Author Organization [facility] Address [address] [place] [address] Phone Care Team Providers Care Line Camera Operator Name Role Phone Provider, Malik JIMENEZ Primary Care Provider [phone] Encounter Details Date Type Department Care Team (Late st Contact Info) Description 02/07/2017 Documentation [facility] [place] [address] [place] [address] Family Medicine, Physician [address] [place], [place] [address] Social History Tobacco Use Types Packs/Day Years [...] on filedocumented in this encounter Care Teams Line Camera Operator Relationship Specialty Start Date End Date Provider, MD Malik [address] [place] [phone] PCP - General Pediatrics 05/03/24 11/19/24 documented as of this encounter
--- OUTSIDE RECORDS SUMMARY | 2025-08-14 11:03 | XMS_ITS | Clinical Summary ---
Author Organization [facility] Address [address] [place] [address] Phone Care Team Providers Care Account Solutions Analyst Name Role Phone Unavailable Primary Care Provider [...] - suggested f/u in August with new [place] forms. 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 Update given. JL 03/05/2020 Assessment & Plan (06/02/2021 10:48 AM EDT): 06/02/21 Paulino Louie calling [phone] for medical update on child - release is scanned; looking for date of last PE and any concerns listed- information given Assessment & Plan (05/27/2021 3:56 PM EDT): 05/27/21 Paulino [place] [phone] calling for medical update-no medical release on [...] of Migraines, No family history of *Sudden /PR under 55, No family history of Cancer, [...] Vaccine (1 of 2 - Standard) 2021 Influenza Vaccines (#1) 2025 02/05/20, 12/15/2022, 08/24/2021, Additional history exists COVID-19 Vaccine (5 - 2024-2 6 season) 2025 02/05/2024, 12/15/2022, 04/24/2021, Additional history exists DTaP,Tdap,and Td Vaccines (7 [...] 12/02/2016 Meningococcal Vaccine Completed 06/07/2021, 017 Insurance [facility] NON PCC [facility] [place] [facility] [place] Address: [address] [address] [place] [address]
--- OUTSIDE RECORDS SUMMARY | 2025-08-14 11:03 | XMS_ITS | Encounter Summary ---
Author Organization [facility] Address [address] [place] [address] Phone Care Team Providers Care Commercial Engineer Name Role Phone Provider, Malik JIMENEZ Primary Care Provider [phone] Encounter Details Date Type Department Care Team (Late st Contact Info) Description 01/29/2010 Documentation [facility] [place] [address] [place] [address] Family Medicine, Physician [address] [place], [place] [address] Social History Tobacco Use Types Packs/Day Years [...] on filedocumented in this encounter Care Teams Commercial Engineer Relationship Specialty Start Date End Date Provider, MD Malik [address] [place] [address] PCP - General Pediatrics 05/03/24 11/19/24 documented as of this encounter
--- OUTSIDE RECORDS SUMMARY | 2025-08-14 11:03 | XMS_ITS | Encounter Summary ---
Author Organization [facility] Address [address] [place] [address] Phone Care Team Providers Care Cracker Dough Mixer Name Role Phone Provider, Malik JIMENEZ Primary Care Provider [phone] Reason for Visit * Reason Onset Date Comments Med Refill 05/19/2022 Encounter Details Date Type Department Care Team (Late st Contact Info) Description 05/19/2022 Refill [facility] [place] [address] [place] [address] Rogelio Pimentel MD [address] [place] [address] Dry eyes; Attention deficit hyperactivity disorder, predominantly [...] type documented in this encounter Care Teams Cracker Dough Mixer Relationship Specialty Start Date End Date Provider, MD Malik [address] [place] [phone] PCP - General Pediatrics 05/03/24 11/19/24 documented as of this encounter
--- OUTSIDE RECORDS SUMMARY | 2025-08-14 11:03 | XMS_ITS | Encounter Summary ---
Author Organization [facility] Address [address] [place] [address] Phone Care Team Providers Care Powdered Sugar Supervisor Name Role Phone Provider, Malik JIMENEZ Primary Care Provider [phone] Encounter Details Date Type Department Care Team (Late st Contact Info) Description 08/05/2010 Documentation [facility] Family Medicine [address] [place] [address] Family Medicine, Physician [address] [place], [place] [address] Social History Tobacco Use Types Packs/Day Years [...] on filedocumented in this encounter Care Teams Powdered Sugar Supervisor Relationship Specialty Start Date End Date Provider, MD Malik [address] [place] [address] PCP - General Pediatrics 05/03/24 11/19/24 documented as of this encounter
[2025-08-14] MEDS: Albuterol Sulfate 90 MCG 8 GM INHALER 4 PUFF INHALE (11:07)
[2025-08-14 11:09] VITALS: PULSE 67; RESP 18; O2SAT 97
[2025-08-14 11:10] LABS: IDNOW Serial# 08D9AD1C; Influenza B2 Negative (Negative)
[2025-08-14 11:11] LABS: COVID-19 Test Negative (Negative); IDNOW Serial# 6674DD1D
[2025-08-14 11:15] LABS: IDNOW Serial# 152EDE1D; Strep A Nucleic Acid Negative (Negative)
[2025-08-14 11:55] VITALS: BP 150/80; PULSE 67; RESP 18; TEMP 37; O2SAT 96
== END 2025-08-14 11:56 | disposition home or self-care (01) ==
PROVIDERS: Emergency Provider Emergency Medicine
DX: J20.9 Acute bronchitis, unspecified (principal)
CPT/HCPCS: 71046; 80048; 85025; 87502; 87635; 87651; 94640; 99284; J2919

== ENCOUNTER → 2025-08-14 10:10 | Outpatient (BNV) | payer OTHER, SELFPAY | PROVIDERS: Emergency Provider Emergency Medicine; Visit Provider Radiology Diagnostic Radiology | DX: R05.9 Cough, unspecified (principal) | CPT/HCPCS: 71046 ==